=== PATIENT | female | born 2000 ===

== ENCOUNTER 2021-07-04 14:53 | Emergency (ER) | payer MEDICAID ==
[~2021-07-04] VITALS: Ht 170.2 cm; Wt 80.3 kg
[2021-07-04 16:20] VITALS: BP 100/62
[2021-07-04] MEDS ORDERED: IBUPROFEN 800 MG TAB PO ONE (17:15)
== END 2021-07-04 17:36 | disposition home or self-care (01) ==
LOC: ER 14:53
DX: S63.502A Unspecified sprain of left wrist, initial encounter (principal); V49.9XXA Car occupant (driver) (passenger) injured in unspecified traffic accident, initial encounter; Y93.89 Activity, other specified; Y92.89 Other specified places as the place of occurrence of the external cause; Y99.8 Other external cause status
CPT/HCPCS: 73110